=== PATIENT | female | born 1970 | race Caucasian/White ===

== ENCOUNTER 2023-02-03 19:02 | Emergency (ER) | payer BC ==
[~2023-02-03] VITALS: Ht 154.9 cm; Wt 55.3 kg
[2023-02-03 22:31] VITALS: BP 142/96
== END 2023-02-03 23:48 | disposition home or self-care (01) ==
LOC: ER 19:02
DX: M25.512 Pain in left shoulder (principal); M25.552 Pain in left hip; M79.662 Pain in left lower leg; E11.9 Type 2 diabetes mellitus without complications; Z88.2 Allergy status to sulfonamides; V89.2XXA Person injured in unspecified motor-vehicle accident, traffic, initial encounter; Y93.I9 Activity, other involving external motion; Y92.89 Other specified places as the place of occurrence of the external cause; Y99.8 Other external cause status
CPT/HCPCS: 73030; 73502; 93005